=== PATIENT | male | born 1970 | race American Indian/Alaskan Native ===

== ENCOUNTER 2017-10-30 06:21 | Emergency (ER) | payer OTHER ==
[2017-10-30 06:44] VITALS: RESP 18; TEMP 98
[2017-10-30] MEDS ORDERED: Bacitracin/Neomycin/Polymyxin Oint(30GM) TOP STA (07:17)
[2017-10-30] MEDS ORDERED: Bacitracin 500 Units/gm Oint Foilpak UD ONE (07:28)
[2017-10-30] MEDS ORDERED: Bacitracin 500 Units/gm Oint Foilpak UD TOP ONE (07:33)
--- NOTE | 2017-10-30 07:37 | ED PDOC ---
Arrival/HPI <Mateo Parks - Last Filed: 10/30/17 08:14> - General Historian: Patient - History of Present Illness Time/Duration: Prior to Arrival <Torrey Kelly - Last Filed: 10/30/17 10:10> - General Chief Complaint: Upper Extremity Problem/Injury Time Seen by Provider: 10/30/17 07:17 - History of Present Illness Narrative History of Present Illness (Text): 10/30/17 08:02 46 M presenting with complaints of cut on finger after a handle from his shower and fell on his finger. Patient states that the cut was bleeding initially but stopped by time he came to the hospital. Patient states his last tetanus shot was 1.5 years ago. Denies current bleeding, pain, numbness and tingling. ( Torrey Kelly) Past Medical History - Provider Review Nursing Documentation Reviewed: Yes - Cardiac Hx Hypertension: Yes - Pulmonary Hx Respiratory Disorders: No - Neurological Hx Neurological Disorder: No - HEENT Hx HEENT Disorder: No - Renal Hx Renal Disorder: No - Endocrine/Metabolic Hx Endocrine Disorders: No - Hematological/Oncological Hx Blood Disorders: No - Integumentary Hx Dermatological Disorder: No - Musculoskeletal/Rheumatological Hx Musculoskeletal Disorders: No - Gastrointestinal Hx Gastrointestinal Disorders: No - Genitourinary/Gynecological Hx Genitourinary Disorders: No - Psychiatric Hx Anxiety: Yes Hx Depression: Yes Hx Substance Use: No <Torrey Kelly - Last Filed: 10/30/17 10:10> Family/Social History - Physician Review Nursing Documentation Reviewed: Yes Family/Social History: Other (non-contributory) Smoking Status: vape Hx Alcohol Use: No Hx Substance Use: No <Torrey Kelly - Last Filed: 10/30/17 10:10> Allergies/Home Meds <Mateo Parks - Last Filed: 10/30/17 08:14> <Torrey Kelly - Last Filed: 10/30/17 10:10> Allergies/Adverse Reactions: Allergies No Known Allergies Allergy (Verified 10/30/17 06:37) Home Medications: Home Meds Medication Instructions Recorded Confirmed Lisinopril/Hydrochlorothiazide 1 tab PO DAILY 10/30/17 10/30/17 [Lisinopril-Hctz 10-12.5 mg Tab] Metoprolol Succinate XL [Toprol XL] 12.5 mg PO BRK 10/30/17 10/30/17 Review of Systems - Physician Review All systems were reviewed & negative as marked: Yes - Review of Systems Constitutional: Normal Eyes: Normal ENT: Normal Respiratory: Normal. absent: SOB, Cough Cardiovascular: Normal. absent: Chest Pain, Palpitations Gastrointestinal: absent: Abdominal Pain Skin: Other (non-bleeding) Neurological: Normal Hemo/Lymphatic: Normal Psychiatric: Normal <Torrey Kelly - Last Filed: 10/30/17 10:10> Physical Exam Vital Signs Reviewed: Yes Temperature: Afebrile Blood Pressure: Normal Pulse: Regular Respiratory Rate: Normal Appearance: Positive for: Well-Appearing, Non-Toxic, Comfortable Pain Distress: None Mental Status: Positive for: Alert and Oriented X 3 - Systems Exam Head: Present: Atraumatic, Normocephalic Pupils: Present: PERRL Extroacular Muscles: Present: EOMI Conjunctiva: Present: Normal Mouth: Present: Moist Mucous Membranes Neck: Present: Normal Range of Motion Respiratory/Chest: Present: Clear to Auscultation. No: Wheezes, Rhonchi Cardiovascular: Present: Regular Rate and Rhythm, Normal S1, S2 Abdomen: No: Tenderness, Normal Bowel Sounds Upper Extremity: Present: NORMAL PULSES. No: Normal Inspection ( skin removal, non-open wound of left index finger), Edema, Tenderness, Swelling Lower Extremity: Present: Normal Inspection, Edema Neurological: Present: GCS=15, CN II-XII Intact, Speech Normal Skin: Present: Warm, Rashes Psychiatric: Present: Alert, Oriented x 3, Normal Insight <Torrey Kelly - Last Filed: 10/30/17 10:10> Vital Signs Temp Pulse Resp BP Pulse Ox 10/30/17 07:42 88 18 145/70 100 10/30/17 06:40 98.0 F 73 18 160/104 H 99 Medical Decision Making <Mateo Parks - Last Filed: 10/30/17 08:14> <Torrey Kelly - Last Filed: 10/30/17 10:10> ED Course and Treatment: 10/30/17 08:13 Dante Paris is a 46 year old male who presents to the emergency department today complaining of a finger cut injury. In agreement with resident note which contains more details about the patient. Patient was seen and evaluated with resident. Came up with plan and treatment together. (Mateo Parks) 10/30/17 08:12 Wound was cleaned, bacitracin ointment was administered, bandage placed. Patient was discharged. (Torrey Kelly) - Medication Orders Current Medication Orders: Discontinued Medications Bacitracin (Bacitracin) 1 ea TOP ONCE ONE Stop: 10/30/17 07:34 Neomycin/Polymyxin/Bacitracin (Neosporin Triple Antibiotic Oint) 1 gm TOP STAT STA Stop: 10/30/17 07:18 Last Admin: 10/30/17 07:32 Dose: 1 gm Comments: administered by MD - Scribe Statement The provider has reviewed the documentation as recorded by the Scribe <Mateo Parks - Last Filed: 10/30/17 08:14> <Torrey Kelly - Last Filed: 10/30/17 10:10> - Scribe Statement Janette Guerra Provider Scribe Attestation: All medical record entries made by the Scribe were at my direction and personally dictated by me. I have reviewed the chart and agree that the record accurately reflects my personal performance of the history, physical exam, medical decision making, and the department course for this patient. I have also personally directed, reviewed, and agree with the discharge instructions and disposition. (Mateo Parks) Disposition/Present on Arrival <Mateo Parks - Last Filed: 10/30/17 08:14> - Present on Arrival Any Indicators Present on Arrival: No History of DVT/PE: No History of Uncontrolled Diabetes: No Urinary Catheter: No History of Decub. Ulcer: No History Surgical Site Infection Following: None - Disposition Have Diagnosis and Disposition been Completed?: Yes Disposition Time: 07:35 Patient Plan: Discharge <Torrey Kelly - Last Filed: 10/30/17 10:10> - Disposition Diagnosis: Cut of finger Disposition: HOME/ ROUTINE Condition: GOOD Discharge Instructions (ExitCare): Wound Care (DC), Common Finger Injuries (DC) Additional Instructions: Mr. Howell, thank you for letting us take care of you today. You were treated for your finger cut injury. The emergency medical care you received today was directed at your acute symptoms. If you were prescribed any medication, please fill it and take as directed. It may take several days for your symptoms to resolve. Return to the Emergency Department if your symptoms worsen, do not improve, or if you have any other problems. Please contact your doctor or call one of the physicians/clinics you have been referred to that are listed on the Patient Visit Information form that is included in your discharge packet. Bring any paperwork you were given at discharge with you along with any medications you are taking to your follow up visit. Our treatment cannot replace ongoing medical care by a primary care provider (PCP) outside of the emergency department. Thank you for allowing the [facility] team to be part of your care today. If you had an X-Ray or CT scan: A Radiologist will review the ED reading if any change in treatment is needed we will contact you. If you had a blood, urine, or wound culture: It will take several days for the results, if any change in treatment is needed we will contact you. If you had an STI test: It will take 48 hours for the results. Please call after 1 week if you have not heard back. Referrals: George Monae MD [Primary Care Provider] - Follow up with primary Forms: [employer] ([place]ian)
[2017-10-30 07:46] VITALS: BP 145/70; PULSE 88; O2SAT 100
== END 2017-10-30 07:42 | disposition home or self-care (01) ==
LOC: ED 06:21 → MERGE 06:21 → ED 07:42
DX: S61.211A Laceration without foreign body of left index finger without damage to nail, initial encounter (principal); W45.8XXA Other foreign body or object entering through skin, initial encounter; Y92.002 Bathroom of unspecified non-institutional (private) residence as the place of occurrence of the external cause